=== PATIENT | male | born 1955 | race Caucasian/White ===

== ENCOUNTER → 2024-09-19 10:09 | Outpatient (CLI) | payer OTHER, SELFPAY ==
--- NOTE | 2024-09-19 10:11 | DI.ECHO.S_ITS ---
[place] [facility]+ [facility] : : [address] : : [place] : : [id number] : : Phone: [phone] Echocardiogram Report + + :Name: DREW KEYES Study Date: 09/19/2024 Height: 73 in : :[facility] ReadingLocation: Weight: 194 lb : : Gender: Male BSA: 2.1 m2 : :: 1955 Age: 69 yrs BP: 123/78 mmHg: :Reason For Study: CORONARY ARTERY DISEASE : :Ordering Physician: IAIN, : :TANO Performed By: Anil Mayo : :Referring: [id number] : + + Interpretation Summary The ejection fraction is estimated to be 55-60%. The aortic root is mildly dilated. There is no significant valvular heart disease. Procedure: A two-dimensional transthoracic echocardiogram with color flow and Doppler was performed. The study quality was technically good. There is no prior echocardiogram noted for this patient. The patient was in normal sinus rhythm during the exam. Left Ventricle: The left ventricle is normal in size. Left ventricular wall thickness is mildly increased. There is no ventricular septal defect visualized. The ejection fraction is estimated to be 55-60%. There are no focal wall motion abnormalities. Diastolic parameters suggest a relaxation abnormality of the left ventricle, consistent with probable normal filling pressures. Right Ventricle: The right ventricle is normal in size and function. Atria: The left atrial size is normal. The right atrium is mildly dilated. There is no Doppler evidence for an interatrial shunt. Mitral Valve: The mitral valve leaflets appear normal. There is no evidence of stenosis, fluttering, or prolapse. There is trace mitral regurgitation. Aortic Valve: The aortic valve is trileaflet. The aortic valve is mildly calcified. There is trace aortic regurgitation. Tricuspid Valve: The tricuspid valve leaflets are thin and pliable. There is a trace or physiologic amount of tricuspid regurgitation. Pulmonic Valve: The pulmonic valve is not well visualized. There is trace pulmonic regurgitation. Great Vessels: The aortic root is mildly dilated. The dimensions of the ascending aorta are normal. The pulmonary artery is normal size. The IVC is of normal diameter and collapses greater than 50% with a sniff. This suggests a low right atrial pressure of 3 mm Hg. Pericardium/ Pleura There is no pericardial effusion. There is no pleural effusion. MMode/2D Measurements & Calculations LVIDd: 5.3 cm LVOT diam: 2.7 cm LVIDs: 3.3 cm Ao root diam: 3.8 cm FS: 36.9 % asc Aorta Diam: 3.4 cm EPSS: 0.43 cm IVSd: 1.2 cm LVPWd: 1.2 cm LV pino. diameter/BSA (cm/m^2): 2.5 LV sys. diameter/BSA (cm/m^2): 1.6 LA A2 area: 20.6 cm2 RA long axis: 5.0 cm LA A4 area: 18.8 cm2 RA area: 20.1 cm2 LA length (vol): 5.1 cm RA vol: 68.9 ml LA vol: 64.7 ml RA : 32.4 ml/m2 LA vol index: 30.4 ml/m2 IVC diam: 2.0 cm RVD1 (basal): 3.9 cm RVD2 (mid): 2.7 cm TAPSE: 2.7 cm Doppler Measurements & Calculations Ao V2 max: 138.0 cm/sec LVOT Max [place]: 85.4 cm/sec Ao V2 mean: 99.0 cm/sec LV V1 max P.9 mmHg Ao max P.6 mmHg LV V1 VTI: 21.4 cm Ao mean P.4 mmHg TRIP(I,D): 3.4 cm2 Ao V2 VTI: 34.7 cm TRIP(V,D): 3.4 cm2 sev ratio: 0.62 TRIP indexed to BSA (cm^2/m^2): 1.6 MV E max orville: 46.3 cm/sec PA V2 max: 99.7 cm/sec MV A max orville: 57.1 cm/sec PA V2 mean: 63.3 cm/sec MV E/A: 0.81 PA mean P.9 mmHg Med Peak E' Orville: 4.7 cm/sec PA pr(Accel): 41.3 mmHg E/E' med: 9.8 Lat Peak E' [place]ville: 4.4 cm/sec E/E' lat: 10.4 E/e' average: 10.1 MV dec time: 0.29 sec SV(LVOT): 118.0 ml Reading Physician:04:09 PM
== END ==
LOC: ECHO 10:10
PROVIDERS: Referring Provider Nurse Practitioner Family; Visit Provider Nurse Practitioner Family
DX: I25.10 Atherosclerotic heart disease of native coronary artery without angina pectoris (principal); I77.810 Thoracic aortic ectasia
CPT/HCPCS: 93306